=== PATIENT | male | born 1985 | race Caucasian/White ===

== ENCOUNTER 2021-12-09 01:16 | Emergency (ER) | payer MEDICARE, MEDICAID ==
[~2021-12-09] VITALS: Ht 185.4 cm; Wt 77.3 kg
[2021-12-09] MEDS ORDERED: SULF1TAB49 PO (02:47)
[2021-12-09] MEDS ORDERED: sulfamethoxazole/trimethoprim DS (800/160mg) tablet PO ONE (02:50)
[2021-12-09 03:12] VITALS: BP 123/80
== END 2021-12-09 03:14 | disposition home or self-care (01) ==
LOC: ER 01:17
DX: L03.115 Cellulitis of right lower limb (principal); M79.604 Pain in right leg; F17.200 Nicotine dependence, unspecified, uncomplicated; Z59.00 Homelessness unspecified; Z88.0 Allergy status to penicillin; Z79.2 Long term (current) use of antibiotics
CPT/HCPCS: 99283

== ENCOUNTER 2025-07-09 18:21 | Emergency (ER) | payer MEDICARE, MEDICAID ==
[~2025-07-09] VITALS: Ht 188 cm; Wt 78.0 kg
[2025-07-09 18:28] VITALS: TEMP 98
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
[2025-07-09 19:37] VITALS: BP 120/92; PULSE 98; RESP 16; O2SAT 98
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
== END 2025-07-09 20:05 | disposition left against medical advice (07) ==
LOC: ER 18:21
DX: S02.85XA Fracture of orbit, unspecified, initial encounter for closed fracture (principal); Z88.0 Allergy status to penicillin; Y08.89XA Assault by other specified means, initial encounter; Y93.89 Activity, other specified; Y92.89 Other specified places as the place of occurrence of the external cause; Y99.8 Other external cause status
CPT/HCPCS: 70450; 71045; 99284